=== PATIENT | female | born 1975 | race Asian ===

== ENCOUNTER 2019-06-19 17:03 | Inpatient (IN) | payer MEDICAID ==
[~2019-06-19] VITALS: Ht 157.5 cm; Wt 80.3 kg
[~2019-06-19 17:03] MED LIST: ALPR0.5T8 PO; DEXILANT; HYDR-500 PO; METF-379 PO; [UNRECOGNIZED DRUG - CODE] PO
[2019-06-19 17:54] VITALS: BP_SYST 131
[2019-06-19] MEDS ORDERED: NITROGLYCERIN 1 INCH (GM) OINT. TP ONE (20:21)
[2019-06-19] MEDS ORDERED: MORPHINE 4 MG/ML INJ. SYRINGE IVP ONE (20:21)
[2019-06-19 21:10] LABS: BASOPHILS % (AUTO) 0.3 % (0.0-2.0); EOSINOPHILS # (AUTO) 0.3 K/uL (0.0-0.4); EOSINOPHILS % (AUTO) 3.5 % (0.0-4.0); HEMOGLOBIN 13.1 g/dL (12.0-16.0); LYMPHOCYTES # (AUTO) 2.8 K/uL (1.0-5.5); MEAN CORPUSCULAR HEMOGLOBIN 29 pg (27-31); MEAN CORPUSCULAR HGB CONC 34 % (32-36); MEAN CORPUSCULAR VOLUME 85 fL (79.0-98.0); MONOCYTES # (AUTO) 0.6 K/uL (0.0-1.0); MONOCYTES % (AUTO) 6.7 % (1.7-9.3); NEUTROPHILS # (AUTO) 5.2 K/uL (1.8-7.7); NEUTROPHILS % (AUTO) 58.5 % (40.0-70.0); PLATELET COUNT (AUTO) 330 K/uL (130-430); RED CELL DISTRIBUTION WIDTH 14.1 % (9.0-15.0); WHITE BLOOD COUNT (AUTO) 8.9 K/uL (4.8-10.8)
[2019-06-19 21:14] LABS: CALCIUM 8.2 mg/dL (8.4-11.0); CREATININE 0.64 mg/dL (0.55-1.30); POTASSIUM 3.9 mmol/L (3.5-5.1)
[2019-06-19 21:21] LABS: ALBUMIN 3.2 g/dL (3.4-4.8); TOTAL BILIRUBIN 0.1 mg/dL (0.0-1.0)
[2019-06-19] MEDS ORDERED: KETOROLAC TROMETHAMINE 15 MG VIAL IVP PRN (23:00)
[2019-06-19] MEDS ORDERED: NITROGLYCERIN 0.4 MG TAB.SUBL SL PRN (23:00)
[2019-06-20] MEDS ORDERED: HYDR-4274 PO (00:37)
[2019-06-20 03:36] VITALS: BP_SYST 187
[2019-06-20] MEDS ORDERED: hydrALAZINE HCL 20 MG/ML VIAL IVP PRN (04:45)
[2019-06-20] MEDS ORDERED: CARVEDILOL 25 MG TABLET (COREG) PO ONE (04:45)
[2019-06-20 04:57] VITALS: BP_SYST 143
[2019-06-20 08:42] VITALS: BP_SYST 130
[2019-06-20] MEDS ORDERED: ENOXAPARIN SODIUM 40 MG/0.4 ML SYRINGE SUBCUT SCH (09:00)
[2019-06-20] MEDS ORDERED: ASPIRIN 81 MG TAB.CHEW PO SCH (09:00)
[2019-06-20] MEDS ORDERED: CARVEDILOL 25 MG TABLET (COREG) PO SCH (09:00)
[2019-06-20] MEDS ORDERED: PANTOPRAZOLE SODIUM 40 MG TAB PO SCH (09:00)
[2019-06-20 11:24] VITALS: BP_SYST 156
[2019-06-20 15:19] VITALS: BP_SYST 147
== END 2019-06-20 17:10 | disposition home or self-care (01) | DRG 203 ==
LOC: SED 17:03 → STU 22:40
PROVIDERS: ADMIT Family Medicine; ATTEND Family Medicine
DX: R07.89 Other chest pain (principal); E11.65 Type 2 diabetes mellitus with hyperglycemia; F32.9 Major depressive disorder, single episode, unspecified; F41.9 Anxiety disorder, unspecified; I10 Essential (primary) hypertension; K21.9 Gastro-esophageal reflux disease without esophagitis; Z79.899 Other long term (current) drug therapy; Z86.32 Personal history of gestational diabetes; Z87.891 Personal history of nicotine dependence; Z79.84 Long term (current) use of oral hypoglycemic drugs
CPT/HCPCS: 36415; 71045; 80053; 82550-TC; 83880; 84484; 85025; 85379; 93005; 93306; 96374; 99291; G0378; J1650; J2270